=== PATIENT | male | born 1945 | race Caucasian/White ===

== ENCOUNTER → 2023-07-25 | Outpatient (CLI) | payer MEDICARE ==
[~2023-07-25] MED LIST: REGADENOSON 0.4 MG/5 ML SYRINGE IV PRN
--- NOTE | 2023-07-25 12:40 | CA ---
Lexiscan Nuclear Stress Test Report Name: Cam Hartley Exam Date: 07/25/2023 09:20 Exam Location: [place] Stress Ht (in): 71 Wt (lb): 150 BSA: 1.87 Ordering Phys: Salome Quezada MD Referring Phys: Jose Spencer Technologist: Keira Perez RDCS Age: 78 Gender: M : 1945 Procedure CPT: Indications: R94.31 ABNORMAL ELECTROCARDIOGRAM ICD-10 Codes: Patient History: HYPERCHOLESTEROLEMIA, PRIOR SMOKER Medications: MOTRIN, MULTIVITAMIN Meds past 24 hrs: Pretest Chest Pain: STRESS TEST Lexiscan Protocol Exercise Duration (min:sec): 01:[address] Depressions (mm): Angina Score: Rascon Score: Resting HR (bpm): 70 Peak HR (bpm): 96 Resting BP (mmHg): 141 / 87 Peak BP (mmHg): 144 / 75 MPHR: 143 Target HR: 122 % MPHR: 67 METS: 1.0 Total Dose: Peak Dose: Atropine: Double Product: 03498 BP Response: Stress Termination: INFUSION COMPLETE Stress Symptoms: NO SYMPTOMS Stress Summary: ECG ANALYSIS Resting ECG: Stress ECG: CONCLUSIONS At baseline EKG showed normal sinus rhythm, normal axis, no significant ST-T wave abnormalities. Patient recieved IV infusion of Lexiscan 0.4mg and at peak infusion EKG showed no change from baseline. Conclusions: 1. Normal EKG response to Lexiscan infusion 2. Nuclear imaging to be reported separately. Dr. Vincent Dejesus DO (Electronically Signed) Final Date: 25 Jul 2023 12:39
--- NOTE | 2023-07-26 17:54 | NM ---
EXAMINATION TYPE: NM stress lexiscan cardiolite DATE OF EXAM: 07/25/2023 COMPARISON: NONE HISTORY: Abnormal EKG TECHNIQUE: After the intravenous administration of 10.5 mCi Tc 99m Sestamibi - Cardiolite resting SP ECT images acquired 71 minutes post injection. At peak stress 25.9 mCi Tc 99m Sestamibi - Stress images obtained 57 minutes post injection The patient was stressed with 0.4mg Lexiscan. FINDINGS: Appears to be a fixed defect along the inferior wall on both resting and stress. This appears to be a fixed defect not palpable by obvious artifact. Allowing for EKG changes. No stress-induced ischemic change adjacent. Polar maps appear to underestimate this defect. Wall motion is normal Ejection fraction is calculated to be 64 %. IMPRESSION: 1. The previously of fixed defect along the inferior wall. Correlate with EKG changes. 2. No stress-induced ischemic changes evident.
== END | disposition home or self-care (01) ==
LOC: RADNMMAIN 07:37
PROVIDERS: ATTEND Family Medicine
DX: Z01.818 Encounter for other preprocedural examination (principal); R94.31 Abnormal electrocardiogram [ECG] [EKG]
CPT/HCPCS: 93017; 78452; A9500; J2785

== ENCOUNTER → 2023-08-27 | Outpatient (CLI) | payer MEDICARE ==
[2023-08-27 12:19] LABS: INR 0.9 (<1.2); Partial Thromboplastin Time 23.9 sec (22.0-30.0); Prothrombin Time 10.3 sec (10.0-12.5)
[2023-08-27 14:54] LABS: HCT 39.1 % (39.6-50.0); MCH 31.1 pg (27.0-32.0); MCHC 33.2 g/dL (32.0-37.0); MCV 93.5 FL (80.0-97.0); Mean Platelet Volume 9.7 FL (9.5-12.2); NRBC Per 100 WBC 0 X 10*3/uL (0.00-0.01); Platelet Count 343 X 10*3/uL (140-440); RBC 4.18 X 10*6/uL (4.40-5.60); RDW 12.9 % (11.5-14.5); WBC 4.65 X 10*3/uL (4.50-10.00)
[2023-08-27 15:20] LABS: ALT 13 U/L (10-49); AST 25 U/L (14-35); Albumin 4.6 g/dL (3.8-4.9); Albumin/Globulin Ratio 2.56 Ratio (1.60-3.17); Alkaline Phosphatase 71 U/L (41-126); BUN/Creat Ratio 12.57 Ratio (12.00-20.00); Blood Urea Nitrogen 8.8 mg/dL (9.0-27.0); Carbon Dioxide 22.1 mmol/L (21.6-31.8); Chloride 90 mmol/L (96-109); Globulin 1.8 g/dL (1.6-3.3); Glucose 93 mg/dL (70-110); Potassium 4.4 mmol/L (3.5-5.5); Sodium 124 mmol/L (135-145); Total Bilirubin 0.5 mg/dL (0.3-1.2); Total Protein 6.4 g/dL (6.2-8.2)
== END | disposition home or self-care (01) ==
LOC: LABWHC1 11:08
PROVIDERS: ATTEND Orthopaedic Surgery
DX: Z22.322 Carrier or suspected carrier of Methicillin resistant Staphylococcus aureus (principal); Z01.818 Encounter for other preprocedural examination; M17.12 Unilateral primary osteoarthritis, left knee; R94.31 Abnormal electrocardiogram [ECG] [EKG]
CPT/HCPCS: 36415; 80053; 85027; 85610; 85730; 87070; 93005

== ENCOUNTER 2023-09-04 11:06 | Day surgery (SDC) | payer MEDICARE ==
[~2023-09-04 11:06] MED LIST changes: -REGADENOSON 0.4 MG/5 ML SYRINGE IV PRN; +TRANEXAMIC 1,000 MG/100ML-NACL 1,000 MG in SALINE 1 100ML.BAG IVPB PRN
[2023-09-04] MEDS ORDERED: MIDAZOLAM 2 MG/2 ML VIAL IV PRN (11:51)
[2023-09-04] MEDS ORDERED: HYDROmorphone 0.5 MG/0.5 ML SYRINGE IVP PRN ×3 (11:51→12:54)
[2023-09-04] MEDS: GABAPENTIN 300 MG CAP PO PRN (12:02)
[2023-09-04] MEDS: ACETAMINOPHEN TAB 500 MG TAB PO PRN (12:02)
[2023-09-04] MEDS: MELOXICAM 7.5 MG TAB PO PRN (12:03)
[2023-09-04] MEDS: DEXAMETHASONE SOD PHOSPHATE 4 MG/ML 1 ML VIAL IV ONE (12:11)
[2023-09-04] MEDS: ONDANSETRON 4 MG/2 ML VIAL IVP ONE (12:11)
[2023-09-04] MEDS: LACTATED RINGERS 1,000 ML IV SCH (12:12)
[2023-09-04] MEDS: IV FLUID CONTINUATION 1,000 ML IV ONE (12:19)
[2023-09-04] MEDS: MIDAZOLAM 2 MG/2 ML VIAL IVP ONE (12:40)
[2023-09-04] MEDS ORDERED: ONDANSETRON 4 MG/2 ML VIAL IVP PRN (12:54)
[2023-09-04] MEDS ORDERED: NA PHOS,M-B/NA PHOS,DI-BA 133 ML ENEMA RECTAL PRN (12:54)
[2023-09-04] MEDS ORDERED: NALOXONE 0.4 MG/ML 1 ML VIAL IV PRN (12:54)
[2023-09-04] MEDS ORDERED: MAGNESIUM HYDROXIDE 2,400 MG/30 ML CUP PO PRN (12:54)
[2023-09-04] MEDS ORDERED: bisacodyL 10 MG SUPP RECTAL PRN (12:54)
[2023-09-04] MEDS ORDERED: HYDROcodone/APAP 7.5-325MG 1 EACH TAB PO PRN ×2 (12:55)
[2023-09-04] MEDS ORDERED: TRANEXAMIC 1,000 MG/100ML-NACL PREMIX BAG ONE (13:04)
[2023-09-04] MEDS ORDERED: ROPIVACAINE 5 MG/ML 30 ML VIAL ONE (13:04)
[2023-09-04] MEDS ORDERED: PHENYLEPHRINE 10 MG/ML VIAL ONE (13:04)
[2023-09-04] MEDS ORDERED: DEXAMETHASONE SOD PHOSPHATE 4 MG/ML 1 ML VIAL ONE (13:04)
[2023-09-04] MEDS ORDERED: PROPOFOL 10 MG/ML 20 ML VIAL IV ONE (13:04)
[2023-09-04] MEDS ORDERED: fentaNYL (PF) 50 MCG/ML 2 ML AMP ONE (13:04)
--- NOTE | 2023-09-04 13:04 | P.ANPRN ---
Procedure Note - Anesthesia - Nerve Block Performed Left [place] Single Time Out Performed: Yes Date of Procedure: 09/04/23 Procedure Start Time: 12:40 Procedure Stop Time: 12:45 Location of Patient: PreOp Indication: Acute Post-Operative Pain, Analgesia, Requested by Surgeon Sedation Type: Sedate with meaningful contact maintained Preparation: Sterile Prep, Sterile Dressing Position: Right Lateral Catheter: None Needle Types: Pajunk Needle Gauge: 21 Ultrasound used to visualize needle placement: Yes Ultrasound used to observe medication spread: Yes Injectate: 0.5% Ropivacaine (see comment for volume) ([id number]) Blood Aspirated: No Pain Paresthesia on Injection Noted: No Resistance on Injection: Normal Image Stored and Saved: Yes Events: Uneventful and Well Tolerated
--- NOTE | 2023-09-04 13:06 | P.ANPRN ---
Procedure Note - Anesthesia - Nerve Block Performed Left Adductor Canal Infusion Time Out Performed: Yes Date of Procedure: 09/04/23 Procedure Start Time: 12:46 Procedure Stop Time: 12:51 Location of Patient: PreOp Indication: Acute Post-Operative Pain, Analgesia, Requested by Surgeon Sedation Type: Sedate with meaningful contact maintained Preparation: Sterile Prep, Sterile Dressing Position: Supine Catheter: Indwelling Needle Types: On-Q Ultrasound used to visualize needle placement: Yes Ultrasound used to observe medication spread: Yes Injectate: 0.5% Ropivacaine (see comment for volume) ([id number]) Blood Aspirated: No Pain Paresthesia on Injection Noted: No Resistance on Injection: Normal Image Stored and Saved: Yes Events: Uneventful and Well Tolerated
[2023-09-04] MEDS: ceFAZolin 1,000 MG in SODIUM CHLORIDE 0.9% 1,000 ML IRRIGATION ONE (13:10)
[2023-09-04] MEDS: LACTATED RINGERS 1,000 ML IV ONE (14:01)
--- NOTE | 2023-09-04 14:27 | P.OP ---
Date of Procedure: 09/04/23 Preoperative Diagnosis: Severe osteoarthritis left knee Postoperative Diagnosis: Severe osteoarthritis left knee Procedure(s) Performed: Left total knee arthroplasty Implants: [employer] Journey II CR Oxinium cruciate retaining femoral component size 7, left [employer] Journey nonporous tibial baseplate size 6, left [employer] Journey II, XLPE Deep Dished articular insert, size 12 mm, Size 5-6, left [employer] Journey Ruby II resurfacing patellar component, oval, 35 mm All components were cemented using Palacos R bone cement The articulation is Oxinium on polyethylene Anesthesia: spinal Surgeon: Byron Newell Customer Development Representative #1: Thao Fofana Estimated Blood Loss (ml): 40 Pathology: none sent Condition: stable Disposition: PACU Indications for Procedure: The patient's knee is end-stage, and conservative management has failed. The operation of knee replacement has been discussed at length in the office, as well as potential risks and complications. These are inclusive of, but not limited to: Infection, bleeding, scarring, discomfort, stiffness, blood vessel and nerve damage, need for further surgery, failure to relieve symptoms, persistence, recurrence, or worsening of problems, loosening, dislocation, wear, blood clot, pulmonary embolism, , gait dysfunction, stiffness, and other risks as discussed in the office. Patient elects to proceed and the consent form has been signed. Operative Findings: The operative findings are consistent with severe osteoarthritis of the left knee Description of Procedure: The patient was seen in the preoperative area, the consent was reviewed and the operative site was marked with a skin marker. The patient verified the procedure and the operative site. An adductor canal pain catheter and an iPACK block were placed by anesthesia in the preoperative area. The patient was then brought to the operating room and positioned on the operating room table in the supine position. Preoperative antibiotics and a gram of tranexamic acid were given intravenously. A spinal anesthetic was administered by the anesthesia department. Care was taken to make sure that all pressure points were adequately padded. A tourniquet was placed on the upper thigh and the lower extremity was prepped with ChloraPrep and draped in usual sterile fashion. A universal time-out was then performed which confirmed the patient's name, surgical site, ALLERGIES, and consent. The lower extremity was then exsanguinated and tourniquet was inflated to 250 mmHg. A standard anterior midline approach to the knee was performed. The skin and subcutaneous tissue were sharply dissected down to the patellar tendon. A medial parapatellar arthrotomy was then performed. The knee was then extended, the patellar was everted, and the knee was flexed. The infra-patellar fat pad was removed in order to enhance exposure. The anterior horns of both menisci were excised, and a release was performed to the posterior medial aspect of the knee. On gross visual inspection, there was complete loss of articular cartilage in the medial and patellofemoral joint spaces. There was also significant cartilage damage in the lateral compartment. There were multiple periarticular osteophytes globally about the knee which were then removed with a Ronguer. The femoral canal was then opened with the 9.5 mm intramedullary drill. The 8 mm intramedullary marcela was then inserted into the femoral canal with the distal femoral cutting guide set for 5 of valgus. The distal femoral cutting block was then pinned in place. The intramedullary marcela was then removed, and the distal femur was then cut. The cutting block was then removed and the cut was checked for symmetry. The resected bone was then measured to confirm the appropriate distal femoral resection. Next, the sizing guide was then placed and set for 3 external rotation based off of the epicondylar axis and [place]'s line. Pins were then placed and the drill holes, and the femur was sized with the sizing stylus. The pins were then removed, and the sizing guide was then removed. The spikes of the appropriate size femoral block was then placed into the predrilled holes, and malleted into place. Two 45 mm pins were then placed into the fixation holes on the cutting block. An jcarlos wing was then used to ensure there would be no notching with the anterior cut. The anterior condyles were cut without notching. The anterior chord cut was then performed, followed by the posterior cut, posterior chamfer cut, and the anterior chamfer cut. The collateral ligaments were protected during the entire process. The cutting block was then removed. Any remaining bone and osteophytes were removed from the femur with a Ronguer. Attention was then directed to the tibia. The remaining ACL was removed with a Ronguer, and the tibia was then gently subluxed forward with a large bent knee retractor. Any remaining menisci were excised. The posterior lateral corner was cauterized in order to coagulate the lateral geniculate artery. The extra medullary tibial cutting guide was then placed, set for the appropriate rotation, slope, and depth of resection. The proximal tibia cutting guide was then pinned in place. Proximal tibia was then cut and sized. A curved osteotome was then used to remove any posterior osteophytes from the distal femur. The femoral trial was placed. A narrow saw blade was then used to remove the anterior intracondylar femoral bone. The CR notch trial was then placed. The tibial trial was placed with the appropriate-sized insert. The knee was able to fully extend and flex to 130 and was stable throughout all range of motion. The knee was then extended and the patella was everted. Patella was then measured, and then using an osteotomy guide, the patella was cut at the appropriate level. The patellar component was sized. The patellar drill guide was placed and the patella was drilled. The patella trial was then placed. The knee was then taken through range of motion with the patella trial and the patella tracked normally using the no thumbs technique. The patella trial was then removed. The knee was then flexed and lug holes were drilled through the femoral trial and the femoral trial was then removed. The tibial was then re- exposed, and the tibial broach guide was then pinned in place after it was set for the appropriate rotation to allow for the most coverage without overhang. The tibia was then reamed and broached. The femoral canal was plugged with autologous bone. The cut surfaces of bone were then irrigated with pulsatile lavage. The knee was also irrigated with Irrisept solution. The components were then opened, the cement was mixed. Cement was placed on the backside of the femoral, tibial, and patellar components. Cement was then applied to the tibial surface and pressurized into the surface using finger pressurization technique. The tibial component was then applied and excess cement was removed after it was impacted securely noted to be flush with the cut surface. In similar fashion, the cement was applied to the cut femoral surface, pressur ized and using finger pressurization the component was impacted in place. Excess cement was removed. The polyethylene spacer was then implanted and locked into position. Patellar component was then applied in a similar technique and the patellar clamp was used to hold patella in place while the cement hardened. The knee was held in full extension while the cement hardened. Once the cement had fully hardened, the knee was reinspected. Any other cement extrusion was removed the final range of motion testing showed range of motion from 0-130 with excellent stability, both medial and laterally and appropriate alignment of the leg. Patella tracked normally. After the cemented hardened, the tourniquet was released and hemostasis was obtained. A second gram of transexamic acid was given intravenously. The knee was again irrigated. The knee was again taken through range of motion and found to be stable throughout all range of motion of 0-130, and the patella tracked normally. The fascia was then closed with 0 Vicryl followed by #2 strata fix suture. The subcutaneous tissue was closed with 3-0 Vicryl and 3-0 strata fix. Exofin glue was used for the skin and placed with the knee in flexion. After the glue had dried, and Optafoam silver impregnated dressing was applied. A lightly compressive dressing was applied using web roll and Michael wrap. Patient was then transferred to the stretcher and taken to recovery room in stable condition. Sponge and needle counts were correct. The electrician station assistant YULISSA Obregon was required due the complexity surgery and the need for a skilled evaluation assistant. She assisted in positioning, draping, retraction, and closure of the wound.
[2023-09-04] MEDS: ROPIVACAINE 1,100 MG, SODIUM CHLORIDE 0.9% 500 ML 330 ML, EMPTY PAIN BALL 1 EACH MISCELLANE PRN (15:03)
--- NOTE | 2023-09-04 15:34 | XR ---
EXAMINATION TYPE: XR knee limited LT DATE OF EXAM: 09/04/2023 3:27 PM CLINICAL INDICATION:Male, 78 years old with history of Evaluation for Postop abnormality and alignmen t; [facility] COMPARISON: None. TECHNIQUE: XR knee limited LT; examined in Frontal, lateral and oblique projections. FINDINGS: Status post total knee arthroplasty changes with hardware in appropriate alignment and in tact. No evidence of fracture. Subcutaneous lucencies and lucencies within the joint consistent with surgical changes. IMPRESSION: Status post total knee arthroplasty changes with hardware intact and appropriate alignment. No fractu res identified.
[2023-09-04] MEDS: SODIUM CHLORIDE 0.9% 1,000 ML IV SCH (16:25)
[2023-09-04] MEDS: ASPIRIN 325 MG TAB PO SCH (20:23)
[2023-09-04] MEDS: SENNOSIDES-DOCUSATE SODIUM 1 EACH TAB PO SCH (20:23)
[2023-09-04] MEDS: HYDROmorphone 0.5 MG/0.5 ML SYRINGE IVP PRN (20:25)
[2023-09-05 07:42] VITALS: BP 133/77; PULSE 71; RESP 16; TEMP 98
[2023-09-05 09:06] LABS: Basophils # (A) 0.01 X 10*3/uL (0.00-0.10); Basophils % (A) 0.1 %; Eosinophils # (A) 0 X 10*3/uL (0.04-0.35); Eosinophils % (A) 0 %; HCT 32.6 % (39.6-50.0); HGB 11.3 g/dL (13.0-17.0); Lymphocytes # (A) 0.59 X 10*3/uL (0.90-5.00); Lymphocytes % (A) 5.2 %; MCH 32.5 pg (27.0-32.0); MCHC 34.7 g/dL (32.0-37.0); MCV 93.7 FL (80.0-97.0); Monocytes # (A) 0.73 X 10*3/uL (0.20-1.00); Monocytes % (A) 6.5 %; NRBC Per 100 WBC 0 X 10*3/uL (0.00-0.01); Neutrophils # (A) 9.84 X 10*3/uL (1.80-7.70); Neutrophils % (A) 87.6 %; Platelet Count 258 X 10*3/uL (140-440); RBC 3.48 X 10*6/uL (4.40-5.60); WBC 11.24 X 10*3/uL (4.50-10.00)
--- NOTE | 2023-09-05 10:05 | P.DS ---
Providers Expected date of discharge: 09/05/23 Attending physician: Byron Newell Consults: 09/04/23 12:54 Consult Physician Routine Consulting Provider: Mandeep Ruffin Consult Reason/Comments: medical management Do you want consulting provider notified?: Yes Primary care physician: Salome Quezada - Discharge Diagnosis(es) (1) Osteoarthritis of left knee Current Visit: Yes Status: Acute (2) S/P total knee arthroplasty Current Visit: Yes Status: Acute Hospital Course: This is a 78-year-old male with known history of degenerative arthritis of the left knee. The patient presented for evaluation as an outpatient. After discussion and consideration patient elects to proceed with total knee arthroplasty. The patient is seen preoperatively by Dr. Newell and medically cleared for surgery by their primary care physician. Patient is admitted to [facility] on 09/04/2023 for total knee arthroplasty. The procedure is performed without complication or sequelae. The patient is doing well postoperatively. Labs and vital signs are stable on day of discharge. On day of discharge patient's knee incision is healing well. There is minimal erythema. There is no drainage noted at this time. There is minimal soft tissue swelling to the knee. Patient has full foot and ankle motion without difficulty or pain. Calf is soft and nontender to palpation. Neurovascular status to the left lower extremity is intact. Patient is discharged home in good condition. Please see med rec for accurate list of home medications. Plan - Discharge Summary Discharge Rx Participant: No New Discharge Prescriptions: New Aspirin 325 mg PO BID #60 tab HYDROcodone/APAP 7.5-325MG [[place] 7.5-325] 1 - 2 tab PO Q6H PRN #32 tab PRN Reason: Pain Sennosides [Senokot] 2 tab PO DAILY PRN #60 tablet PRN Reason: Constipation No Action NIFEdipine [Adalat CC] 1 tab PO DAILY Ibuprofen [Motrin] 800 mg PO Q8H Multivitamins, Thera [Multivitamin (formulary)] 1 tab PO DAILY Discharge Medication List Ibuprofen [Motrin] 800 mg PO Q8H 08/31/23 [History] Multivitamins, Thera [Multivitamin (formulary)] 1 tab PO DAILY 08/31/23 [History] NIFEdipine [Adalat CC] 1 tab PO DAILY 08/31/23 [History] Aspirin 325 mg PO BID #60 tab 09/04/23 [Rx] HYDROcodone/APAP 7.5-325MG [[place] 7.5-325] 1 - 2 tab PO Q6H PRN #32 tab 09/04/23 [Rx] Sennosides [Senokot] 2 tab PO DAILY PRN #60 tablet 09/04/23 [Rx] Follow up Appointment(s)/Referral(s): [facility] [NON-STAFF] - As Needed (Continuous Passive Motion knee machine and walker) [facility] [NON-[facility]] - As Needed Byron Newell DO [Doctor of Osteopathic Medicine] - 09/13/23 9:30 am Activity/Diet/Wound Care/Special Instructions: Weightbearing as tolerated with a walker. CPM 5-6h daily as tolerated. Leave dressing intact. Dressing may be removed by home care nurse or by patient in 7 days. Then change dressing twice daily until follow up. May shower with initial dressing intact and after removal. If dressing become saturated, please remove. Recommend use of compression stockings daily until follow up to help prevent swelling and blood clots. May remove at night before sleeping. Please take aspirin 325mg twice daily for 30 days to prevent blood clots. Please follow up with [facility] and call with any questions or concerns, . Discharge Disposition: HOME WITH HOME HEALTH SERVICES
--- NOTE | 2023-09-05 19:11 | P.PN ---
Progress Note - Text 09/05/23 633am 78-year-old male status post total knee replacement. Patient has an On-Q pump for postop pain control with a solution running at 8 cc an hour with a VAS of 4. Dressing clean dry intact. Plan to continue On-Q pump infusion
== END 2023-09-05 13:24 | disposition home health service (06) ==
LOC: OR 11:06 → 4SSUR 14:50 → OR 09-05 13:24
PROVIDERS: ATTEND Orthopaedic Surgery
DX: M17.12 Unilateral primary osteoarthritis, left knee (principal); G89.18 Other acute postprocedural pain; Z79.82 Long term (current) use of aspirin; Z79.899 Other long term (current) drug therapy
CPT/HCPCS: 97161; 64999; 64448; 85025; 73560; 27447; C1713; C1776; C1751; J2250; J1100; J0690 ×3; J2405; J2795; J1170

== ENCOUNTER 2024-05-20 05:40 | Day surgery (SDC) | payer MEDICARE ==
[2024-05-20] MEDS: IV FLUID CONTINUATION 1,000 ML IV ONE ×2 (06:01→08:50)
[2024-05-20] MEDS: ACETAMINOPHEN TAB 500 MG TAB PO PRN (06:21)
[2024-05-20] MEDS: MELOXICAM 7.5 MG TAB PO PRN (06:21)
[2024-05-20] MEDS: DEXAMETHASONE SOD PHOSPHATE 4 MG/ML 1 ML VIAL IV ONE (06:22)
[2024-05-20] MEDS: LACTATED RINGERS 1,000 ML IV SCH (06:22)
[2024-05-20] MEDS: GABAPENTIN 300 MG CAP PO PRN (06:22)
[2024-05-20] MEDS: ONDANSETRON 4 MG/2 ML VIAL IVP ONE (06:22)
[2024-05-20] MEDS: MIDAZOLAM 2 MG/2 ML VIAL IV PRN (06:27)
[2024-05-20] MEDS ORDERED: ROPIVACAINE 5 MG/ML 30 ML VIAL ONE (06:51)
[2024-05-20] MEDS ORDERED: ePHEDrine 50 MG/ML 1 ML VIAL ONE (06:51)
[2024-05-20] MEDS ORDERED: PHENYLEPHRINE 10 MG/ML VIAL ONE (06:51)
[2024-05-20] MEDS ORDERED: PROPOFOL 10 MG/ML 20 ML VIAL IV ONE (06:51)
[2024-05-20] MEDS ORDERED: MIDAZOLAM 2 MG/2 ML VIAL ONE (06:51)
[2024-05-20] MEDS ORDERED: TRANEXAMIC 1,000 MG/100ML-NACL PREMIX BAG ONE (06:51)
[2024-05-20] MEDS ORDERED: DEXAMETHASONE SOD PHOSPHATE 4 MG/ML 1 ML VIAL ONE (06:51)
[2024-05-20] MEDS: ceFAZolin 1,000 MG in SODIUM CHLORIDE 0.9% 1,000 ML IRRIGATION ONE (06:54)
[2024-05-20] MEDS ORDERED: HYDROmorphone 0.5 MG/0.5 ML SYRINGE IVP PRN ×4 (07:00→08:46)
--- NOTE | 2024-05-20 07:11 | P.ANPRN ---
Procedure Note - Anesthesia - Nerve Block Performed Right [place] Single Date of Procedure: 05/20/24 Procedure Start Time: : Procedure Stop Time: : Location of Patient: PreOp Indication: Acute Post-Operative Pain, Analgesia, Requested by Surgeon Sedation Type: Sedate with meaningful contact maintained Preparation: Sterile Prep Position: Left Lateral Catheter: None Needle Types: Pajunk Needle Gauge: 21 Ultrasound used to visualize needle placement: Yes Ultrasound used to observe medication spread: Yes Injectate: 0.5% Ropivacaine (see comment for volume) ([id number] 4mg) Blood Aspirated: No Pain Paresthesia on Injection Noted: No Resistance on Injection: Normal Image Stored and Saved: Yes Events: Uneventful and Well Tolerated
--- NOTE | 2024-05-20 07:13 | P.ANPRN ---
Procedure Note - Anesthesia - Nerve Block Performed Right Adductor Canal Infusion Time Out Performed: Yes Date of Procedure: 05/20/24 Procedure Start Time: : Procedure Stop Time: 06:36 Location of Patient: PreOp Indication: Acute Post-Operative Pain, Analgesia, Requested by Surgeon Sedation Type: Sedate with meaningful contact maintained Preparation: Sterile Prep Position: Supine Catheter: Indwelling Needle Types: On-Q Ultrasound used to visualize needle placement: Yes Ultrasound used to observe medication spread: Yes Injectate: 0.5% Ropivacaine (see comment for volume) ([id number]) Blood Aspirated: No Pain Paresthesia on Injection Noted: No Resistance on Injection: Normal Image Stored and Saved: Yes Events: Uneventful and Well Tolerated
--- NOTE | 2024-05-20 08:11 | P.OP ---
Date of Procedure: 05/20/24 Preoperative Diagnosis: Severe osteoarthritis, right knee Postoperative Diagnosis: Severe osteoarthritis, right knee Procedure(s) Performed: Right total knee arthroplasty Implants: [employer] Journey II CR Oxinium cruciate retaining femoral component size 7, right [employer] Journey nonporous tibial baseplate size 7, right [employer] Journey II, XLPE Deep Dished articular insert, size 10 mm, Size 5-6, right [employer] Ruby II resurfacing patellar component, oval, 32 mm All components were cemented using Palacos R bone cement The articulation is Oxinium on polyethylene Anesthesia: spinal Surgeon: Byron Newell Material Reprocessing Associate #1: Thao Fofana Estimated Blood Loss (ml): 50 Pathology: none sent Condition: stable Disposition: PACU Indications for Procedure: The patient's knee is end-stage, and conservative management has failed. The operation of knee replacement has been discussed at length in the office, as well as potential risks and complications. These are inclusive of, but not limited to: Infection, bleeding, scarring, discomfort, stiffness, blood vessel and nerve damage, need for further surgery, failure to relieve symptoms, persistence, recurrence, or worsening of problems, loosening, dislocation, wear, blood clot, pulmonary embolism, , gait dysfunction, stiffness, and other risks as discussed in the office. Patient elects to proceed and the consent form has been signed. Operative Findings: The operative findings are consistent with severe osteoarthritis of the right knee Description of Procedure: The patient was seen in the preoperative area, the consent was reviewed and the operative site was marked with a skin marker. The patient verified the procedure and the operative site. An adductor canal pain catheter and an iPACK block were placed by anesthesia in the preoperative area. The patient was then brought to the operating room and positioned on the operating room table in the supine position. Preoperative antibiotics and a gram of tranexamic acid were given intravenously. A spinal anesthetic was administered by the anesthesia department. Care was taken to make sure that all pressure points were adequately padded. A tourniquet was placed on the upper thigh and the lower extremity was prepped with ChloraPrep and draped in usual sterile fashion. A universal time-out was then performed which confirmed the patient's name, surgical site, ALLERGIES, and consent. The lower extremity was then exsanguinated and tourniquet was inflated to 250 mmHg. A standard anterior midline approach to the knee was performed. The skin and subcutaneous tissue were sharply dissected down to the patellar tendon. A medial parapatellar arthrotomy was then performed. The knee was then extended, the patellar was everted, and the knee was flexed. The infra-patellar fat pad was removed in order to enhance exposure. The anterior horns of both menisci were excised, and a release was performed to the posterior medial aspect of the knee. On gross visual inspection, there was complete loss of articular cartilage in the medial and patellofemoral joint spaces. There was also significant cartilage damage in the lateral compartment. There were multiple periarticular osteophytes globally about the knee which were then removed with a Ronguer. The femoral canal was then opened with the 9.5 mm intramedullary drill. The 8 mm intramedullary marcela was then inserted into the femoral canal with the distal femoral cutting guide set for 5 of valgus. The distal femoral cutting block was then pinned in place. The intramedullary marcela was then removed, and the distal femur was then cut. The cutting block was then removed and the cut was checked for symmetry. The resected bone was then measured to confirm the appropriate distal femoral resection. Next, the sizing guide was then placed and set for 3 external rotation based off of the epicondylar axis and Sardis's line. Pins were then placed and the drill holes, and the femur was sized with the sizing stylus. The pins were then removed, and the sizing guide was then removed. The spikes of the appropriate size femoral block was then placed into the predrilled holes, and malleted into place. Two 45 mm pins were then placed into the fixation holes on the cutting block. An jcarlos wing was then used to ensure there would be no notching with the anterior cut. The anterior condyles were cut without notching. The anterior chord cut was then performed, followed by the posterior cut, posterior chamfer cut, and the anterio r chamfer cut. The collateral ligaments were protected during the entire process. The cutting block was then removed. Any remaining bone and osteophytes were removed from the femur with a Ronguer. Attention was then directed to the tibia. The remaining ACL was removed with a Ronguer, and the tibia was then gently subluxed forward with a large bent knee retractor. Any remaining menisci were excised. The posterior lateral corner was cauterized in order to coagulate the lateral geniculate artery. The extra medullary tibial cutting guide was then placed, set for the appropriate rotation, slope, and depth of resection. The proximal tibia cutting guide was then pinned in place. Proximal tibia was then cut and sized. A curved osteotome was then used to remove any posterior osteophytes from the distal femur. The femoral trial was placed. A narrow saw blade was then used to remove the anterior intracondylar femoral bone. The CR notch trial was then placed. The tibial trial was placed with the appropriate-sized insert. The knee was able to fully extend and flex to 130 and was stable throughout all range of motion. The knee was then extended and the patella was everted. Patella was then measured, and then using an osteotomy guide, the patella was cut at the appropriate level. The patellar component was sized. The patellar drill guide was placed and the patella was drilled. The patella trial was then placed. The knee was then taken through range of motion with the patella trial and the patella tracked normally using the no thumbs technique. The patella trial was then removed. The knee was then flexed and lug holes were drilled through the femoral trial and the femoral trial was then removed. The tibial was then re- exposed, and the tibial broach guide was then pinned in place after it was set for the appropriate rotation to allow for the most coverage without overhang. The tibia was then reamed and broached. The femoral canal was plugged with autologous bone. The cut surfaces of bone were then irrigated with pulsatile lavage. The knee was also irrigated with Irrisept solution. The components were then opened, the cement was mixed. Cement was placed on the backside of the femoral, tibial, and patellar components. Cement was then applied to the tibial surface and pressurized into the surface using finger pressurization technique. The tibial component was then applied and excess cement was removed after it was impacted securely noted to be flush with the cut surface. In similar fashion, the cement was applied to the cut femoral surface, pressurized and using finger pressurization the component was impacted in place. Excess cement was removed. The polyethylene spacer was then implanted and locked into position. Patellar component was then applied in a similar technique and the patellar clamp was used to hold patella in place while the cement hardened. The knee was held in full extension while the cement hardened. Once the cement had fully hardened, the knee was reinspected. Any other cement extrusion was removed the final range of motion testing showed range of motion from 0-130 with excellent stability, both medial and laterally and appropriate alignment of the leg. Patella tracked normally. After the cemented hardened, the tourniquet was released and hemostasis was obtained. A second gram of transexamic acid was given intravenously. The knee was again irrigated. The knee was again taken through range of motion and found to be stable throughout all range of motion of 0-130, and the patella tracked normally. The fascia was then closed with 0 Vicryl followed by #2 strata fix suture. The subcutaneous tissue was closed with 3-0 Vicryl and 3-0 monocryl. Exofin glue was used for the skin and placed with the knee in flexion. After the glue had dried, and Optafoam silver impregnated dressing was applied. A lightly compressive dressing was applied using web roll and Michael wrap. Patient was then transferred to the stretcher and taken to recovery room in stable condition. Sponge and needle counts were correct. The nutrition services assistant YULISSA Obregon was required due the complexity surgery and the need for a skilled certified surgical first assistant. She assisted in positioning, draping, retraction, and closure of the wound.
[2024-05-20] MEDS ORDERED: Acetaminophen-Codeine 300-30mg TAB PO PRN (08:46)
[2024-05-20] MEDS ORDERED: NALOXONE 0.4 MG/ML 1 ML VIAL IV PRN (08:46)
[2024-05-20] MEDS ORDERED: ONDANSETRON 4 MG/2 ML VIAL IVP PRN (08:46)
[2024-05-20] MEDS ORDERED: MAGNESIUM HYDROXIDE 2,400 MG/30 ML CUP PO PRN (08:46)
--- NOTE | 2024-05-20 09:07 | XR ---
EXAMINATION TYPE: XR knee limited RT DATE OF EXAM: 05/20/2024 CLINICAL HISTORY: Postoperative evaluation Two views of the right knee are submitted. Identified are changes of total knee arthroplasty with femoral and tibial components appearing well seated. Postsurgical soft tissue changes are noted. Alignment is anatomic. [facility], , 05/20/2024 9:04 AM
[2024-05-20] MEDS: ROPIVACAINE 1,100 MG, SODIUM CHLORIDE 0.9% 500 ML 330 ML, EMPTY PAIN BALL 1 EACH MISCELLANE PRN (09:17)
[2024-05-20] MEDS: SODIUM CHLORIDE 0.9% 1,000 ML IV SCH (13:15)
[2024-05-20] MEDS: Acetaminophen-Codeine 300-30mg TAB PO PRN (15:48)
--- NOTE | 2024-05-20 16:55 | P.CONS ---
History of Present Illness - Reason for Consult Consult date: 05/20/24 - History of Present Illness Cam Hartley, is a 79-year-old male admitted by Dr. Newell and underwent right total knee arthroplasty on 05/20/2024, medical consultation was requested for management while hospitalized. Patient has a known history of osteoarthritis, he was admitted in September of last year and underwent left total knee arthroplasty, otherwise he denies any significant past medical history, there is no history of hypertension, hyperlipidemia, diabetes mellitus, asthma or COPD, coronary artery disease or congestive heart failure, and no history of kidney disease. Patient does not take any prescription medications at home On review of systems he is alert and oriented x 3 in no apparent distress there is no fever or chills no headache or dizziness no chest pain no shortness of breath no cough no nausea or vomiting no abdominal pain no diarrhea and no urinary symptoms. Past Medical History Past Medical History: Cancer Additional Past Medical History / Comment(s): basal cells removed from back History of Any Multi-Drug Resistant Organisms: None Reported Past Surgical History: Joint Replacement Additional Past Surgical History / Comment(s): left knee replaced, joseline cataracts, right total knee replacement. Past Anesthesia/Blood Transfusion Reactions: No Reported Reaction Past Psychological History: No Psychological Hx Reported Smoking Status: Former smoker Past Alcohol Use History: Occasional Additional Past Alcohol Use History / Comment(s): quit 18-20 yrs ago Past Drug Use History: None Reported - Past Family History Mother Family Medical History: Cancer Additional Family Medical History / Comment(s): breast Medications and Allergies Home Medications Medication Instructions Recorded Confirmed Type Ibuprofen [Motrin] 800 mg PO Q8H 08/31/23 05/20/24 History Multivitamins, Thera [Multivitamin 1 tab PO DAILY 08/31/23 05/20/24 History (formulary)] Acetaminophen-Codeine 300-30mg 1 - 2 tab PO Q6H PRN #30 tablet 05/20/24 Rx [Tylenol #3] Aspirin 325 mg PO BID #60 tab 05/20/24 Rx Sennosides [Senokot] 2 tab PO DAILY PRN #60 tablet 05/20/24 Rx Allergies Allergy/AdvReac Type Severity Reaction Status Date / Time No Known Allergies Allergy Verified 05/20/24 06:09 Physical Exam Vitals: Vital Signs Temp Pulse Resp BP BP Pulse Ox 05/20/24 13:04 97.8 F 91 16 136/77 98 05/20/24 11:25 87 12 134/73 96 05/20/24 10:55 95 16 133/73 99 05/20/24 10:25 78 18 135/67 98 05/20/24 09:55 71 18 142/68 97 05/20/24 09:25 85 18 134/78 18 L 05/20/24 09:10 72 18 138/81 100 05/20/24 08:55 73 18 132/74 97 05/20/24 08:40 97.1 F L 78 16 124/70 98 05/20/24 06:41 82 16 142/73 98 05/20/24 06:08 98 F 90 16 179/95 98 Intake and Output 05/20/24 05/20/24 05/20/24 06:59 14:59 22:59 Intake Total 1051 300 Output Total 50 Balance 1051 250 Intake: IV 1051 300 Output: Estimated Blood Loss 50 Other: # Voids 1 Weight 64.5 kg 64.5 kg In general patient is alert and oriented x 3 in no distress HEENT head normocephalic and atraumatic Neck is supple no JVD no goiter no lymphadenopathy no carotid bruit Chest examination is clear to auscultation no crackles no wheezing Cardiac exam reveals regular heart sounds S1 and S2 no gallops no murmurs Abdomen is soft nontender no organomegaly with normal bowel sounds Extremity exam reveals no edema no cyanosis or clubbing Neurological examination reveals no gross focal deficits Assessment and Plan Plan: Osteoarthritis with bilateral knee involvement Status post right total knee arthroplasty on 05/20/2024 History of basal cell carcinoma of the skin At this time patient was seen and examined Pain medications and DVT prophylaxis per orthopedic protocol Will follow during this admission Possible discharge to home tomorrow
[2024-05-20] MEDS: ASPIRIN 325 MG TAB PO SCH (21:57)
[2024-05-20] MEDS: SENNOSIDES-DOCUSATE SODIUM 1 EACH TAB PO SCH (21:58)
[2024-05-21 08:34] LABS: Basophils # (A) 0.01 X 10*3/uL (0.00-0.10); Basophils % (A) 0.1 %; Eosinophils # (A) 0.01 X 10*3/uL (0.04-0.35); Eosinophils % (A) 0.1 %; HCT 28.6 % (39.6-50.0); HGB 9.8 g/dL (13.0-17.0); Lymphocytes # (A) 0.86 X 10*3/uL (0.90-5.00); Lymphocytes % (A) 7.8 %; MCH 31.8 pg (27.0-32.0); MCHC 34.3 g/dL (32.0-37.0); MCV 92.9 FL (80.0-97.0); Mean Platelet Volume 10.1 FL (9.5-12.2); Monocytes # (A) 1.18 X 10*3/uL (0.20-1.00); Monocytes % (A) 10.7 %; NRBC Per 100 WBC 0 X 10*3/uL (0.00-0.01); Neutrophils # (A) 8.91 X 10*3/uL (1.80-7.70); Neutrophils % (A) 80.8 %; Platelet Count 234 X 10*3/uL (140-440); RBC 3.08 X 10*6/uL (4.40-5.60); RDW 12.8 % (11.5-14.5); WBC 11.03 X 10*3/uL (4.50-10.00)
[2024-05-21 09:14] VITALS: RESP 18
--- NOTE | 2024-05-21 11:50 | P.PN ---
Progress Note - Text 05/21/24 624am 79-year-old male status post total knee replacement. Patient has an On-Q pump for postop pain control with a solution running at 8 cc an hour with a VAS of 0. Dressing clean dry and intact. Plan to continue On-Q pump infusion
--- NOTE | 2024-05-21 12:16 | P.DS ---
Providers Expected date of discharge: 05/21/24 Attending physician: Byron Newell Consults: 05/20/24 08:46 Consult Physician Routine Consulting Provider: Tima Ramos Consult Reason/Comments: medical management Do you want consulting provider notified?: Yes Primary care physician: Salome Quezada - Discharge Diagnosis(es) (1) Osteoarthritis of right knee Current Visit: Yes Status: Acute (2) Status post total right knee replacement Current Visit: Yes Status: Acute Hospital Course: This is a 79-year-old male with known history of degenerative arthritis of the right knee. The patient presented for evaluation as an outpatient. After disc ussion and consideration patient elects to proceed with total knee arthroplasty. The patient is seen preoperatively by Dr. Newell and medically cleared for surgery by their primary care physician. Patient is admitted to [facility] on 05/20/2024 for total knee arthroplasty. The procedure is performed without complication or sequelae. The patient is doing well postoperatively. Labs and vital signs are stable on day of discharge. On day of discharge patient's knee incision is healing well. There is minimal erythema. There is no drainage noted at this time. There is minimal soft tissue swelling to the knee. Patient has full foot and ankle motion without difficulty or pain. Calf is soft and nontender to palpation. Neurovascular status to the right lower extremity is intact. Patient is discharged home in good condition. Please see med rec for accurate list of home medications. Plan - Discharge Summary Discharge Rx Participant: No New Discharge Prescriptions: New Aspirin 325 mg PO BID #60 tab Sennosides [Senokot] 2 tab PO DAILY PRN #60 tablet PRN Reason: Constipation Acetaminophen-Codeine 300-30mg [Tylenol #3] 1 - 2 tab PO Q6H PRN #30 tablet PRN Reason: Pain No Action Ibuprofen [Motrin] 800 mg PO Q8H Multivitamins, Thera [Multivitamin (formulary)] 1 tab PO DAILY Discharge Medication List Ibuprofen [Motrin] 800 mg PO Q8H 08/31/23 [History] Multivitamins, Thera [Multivitamin (formulary)] 1 tab PO DAILY 08/31/23 [History] Acetaminophen-Codeine 300-30mg [Tylenol #3] 1 - 2 tab PO Q6H PRN #30 tablet 05/20/24 [Rx] Aspirin 325 mg PO BID #60 tab 05/20/24 [Rx] Sennosides [Senokot] 2 tab PO DAILY PRN #60 tablet 05/20/24 [Rx] Follow up Appointment(s)/Referral(s): [facility], [NON-STAFF] - 1-2 Days ([facility] will call you to schedule your in home physical therapy visits.) Byron Newell DO [Doctor of Osteopathic Medicine] - 2 Weeks Activity/Diet/Wound Care/Special Instructions: Weightbearing as tolerated with a walker. Leave dressing intact. Dressing may be removed by home care nurse or by patient in 7 days. Then change dressing twice daily until follow up. May shower with initial dressing intact and after removal. If dressing become saturated, please remove. Recommend use of compression stockings daily until follow up to help prevent swelling and blood clots. May remove at night before sleeping. Please take aspirin 325mg twice daily for 30 days to prevent blood clots. Please follow up with [facility] and call with any questions or concerns, . Discharge Disposition: HOME WITH HOME HEALTH SERVICES
[2024-05-21 14:58] VITALS: BP 116/71; PULSE 78; TEMP 97.6
--- NOTE | 2024-05-21 16:33 | P.PN ---
Subjective Progress Note Date: 05/21/24 Cam Hartley, is a 79-year-old male admitted by Dr. Newell and underwent right total knee arthroplasty on 05/20/2024, medical consultation was requested for management while hospitalized. Patient has a known history of osteoarthritis, he was admitted in September of last year and underwent left total knee arthroplasty, otherwise he denies any significant past medical history, there is no history of hypertension, hyperlipidemia, diabetes mellitus, asthma or COPD, coronary artery disease or congestive heart failure, and no history of kidney disease. Patient does not take any prescription medications at home On review of systems he is alert and oriented x 3 in no apparent distress there is no fever or chills no headache or dizziness no chest pain no shortness of breath no cough no nausea or vomiting no abdominal pain no diarrhea and no urinary symptoms. On 05/21/2024 patient was seen and examined on the medical floor he is alert and oriented x 3 in no apparent distress there is no fever or chills no headache or dizziness no chest pain no shortness of breath no cough no nausea or vomiting no abdominal pain no diarrhea no urinary symptoms. Plan per orthopedic surgery is to discharge patient to home today. Patient is medically clear for discharge. Objective - Vital Signs Vital signs: Vital Signs Temp 97.6 F 05/21/24 14:20 Pulse 78 05/21/24 14:20 Resp 18 05/21/24 14:20 BP 116/71 05/21/24 14:20 Pulse Ox 99 05/21/24 14:20 FiO2 Intake & Output 05/20/24 05/21/24 05/21/24 18:59 06:59 18:59 Intake Total 300 Output Total 50 Balance 250 Weight 64.5 kg Intake: IV 300 Output: Estimated Blood Loss 50 Other: # Voids 1 1 - Exam In general patient is alert and oriented x 3 in no distress HEENT head normocephalic and atraumatic Neck is supple no JVD no goiter no lymphadenopathy no carotid bruit Chest examination is clear to auscultation no crackles no wheezing Cardiac exam reveals regular heart sounds S1 and S2 no gallops no murmurs Abdomen is soft nontender no organomegaly with normal bowel sounds Extremity exam reveals no edema no cyanosis or clubbing Neurological examination reveals no gross focal deficits - Labs CBC & Chem 7: 05/21/24 03:57 Labs: Abnormal Lab Results - Last 24 Hours (Table) 05/21/24 Range/Units 03:57 WBC 11.03 H (4.50-10.00) X 10*3/uL RBC 3.08 L (4.40-5.60) X 10*6/uL Hgb 9.8 L (13.0-17.0) g/dL Hct 28.6 L (39.6-50.0) % Immature Gran # 0.06 H (0.00-0.04) X 10*3/uL Neutrophils # 8.91 H (1.80-7.70) X 10*3/uL Lymphocytes # 0.86 L (0.90-5.00) X 10*3/uL Monocytes # 1.18 H (0.20-1.00) X 10*3/uL Eosinophils # 0.01 L (0.04-0.35) X 10*3/uL Assessment and Plan Plan: Osteoarthritis with bilateral knee involvement Status post right total knee arthroplasty on 05/20/2024 History of basal cell carcinoma of the skin At this time patient was seen and examined Pain medications and DVT prophylaxis per orthopedic protocol Will follow during this admission Possible discharge to home tomorrow
== END 2024-05-21 16:38 | disposition home health service (06) ==
LOC: OR 05:40 → 4SSUR 11:50 → OR 05-21 17:00
PROVIDERS: ATTEND Orthopaedic Surgery
DX: M17.11 Unilateral primary osteoarthritis, right knee (principal); F10.90 Alcohol use, unspecified, uncomplicated; G89.18 Other acute postprocedural pain; Z87.891 Personal history of nicotine dependence; Z79.1 Long term (current) use of non-steroidal anti-inflammatories (NSAID)
CPT/HCPCS: 27447; 97161; 64448; 64473; 85025; 73560; C1713; C1776; C1751; J2250; J1100; J0690 ×3; J2405; J2795; J2704; J2371; 64999